=== PATIENT | female | born 1975 | race Asian ===

== ENCOUNTER 2016-07-04 11:42 | Emergency (ER) | payer OTHER ==
--- NOTE | ~2016-07-04 | EKG ---
PATIENT: KAIDEN SUGGS UNIT #: [id number] Ventricular Rate: 68 BPM Atrial Rate: 68 BPM P-R Interval: 140 ms QRS Duration: 96 ms Q-T Interval: 408 ms QTC Calculation(Bezet): 433 ms P Gepp: 61 degrees Calculated R Gepp: 72 degrees Calculated T Gepp: 74 degrees Diagnosis Line: Normal sinus rhythm Diagnosis Line: RSR' or QR pattern in V1 suggests right Diagnosis Line: ventricular conduction delay Diagnosis Line: Borderline ECG Diagnosis Line: No previous ECGs available Diagnosis Line: Confirmed by ANANT REEDER MD ([id number]) on Diagnosis Line: 07/05/2016 8:51:31 AM INTERPRETING MD: ASPEN
--- NOTE | ~2016-07-04 | CR72 ---
[facility] A Service of [facility] & [facility] RADIOLOGY TEXT RESULTS PATIENT: KAIDEN SUGGS LOCATION: [facility] : [birth year] UNIT #: [id number] AGE: [address]: Sharath Dos Santos MD SEX: F ORDER DR: [id number] [facility] [address] [place], [place] [address] [id number] E MR#: [id number] Acc #: [id number] NAME: KAIDEN SUGGS. : 1975 SEX: F STUDY DATE/TIME: 07/04/2016 10:49 UNIT: [facility] ROOM: STUDY DESCRIPTION: CR Chest Single View Portable Attending Physician: Sharath Dos Santos M.D. Ordering Physician: Sharath Dos Santos M.D. MEDICAL IMAGING REPORT This report is preliminary unless electronic signature is present EXAM Single view of the chest dated 07/04/2016 COMPARISON None HISTORY Dizziness and weakness for 2-3 days. FINDINGS Single view of the chest was obtained. A single AP portable view of the chest shows both lungs to be clear. The heart is normal in size. The mediastinal contour is normal. No significant bone abnormalities are seen. IMPRESSION Normal portable chest. Dictated by... Richard Hernandez M.D. THIS IS AN ELECTRONICALLY VERIFIED REPORT Richard Hernandez M.D. at 07/06/2016 2:59 PM CPR/lalo TD: 07/04/2016 12:59 JOB #: [id number] MEDICAL IMAGING REPORT Page 1 of 1 COPY
--- NOTE | ~2016-07-04 | CT71 ---
[facility] A Service of [facility] RADIOLOGY TEXT RESULTS PATIENT: KAIDEN SUGGS LOCATION: [facility] : [birth year] UNIT #: [id number] AGE: [address]: Sharath Dos Santos MD SEX: F ORDER DR: [id number] [facility] [address] [place], [place] [address] [id number] E MR#: [id number] Acc #: [id number] NAME: KAIDEN SGUGS : 1975 SEX: F STUDY DATE/TIME: 07/04/2016 12:11 UNIT: [facility] ROOM: STUDY DESCRIPTION: CT Head Wo Contrast Attending Physician: Sharath Dos Santos M.D. Ordering Physician: Sharath [id number] Garrett Dos Santos MEDICAL IMAGING REPORT This report is preliminary unless electronic signature is present EXAM CT head without contrast dated 07/04/2016 COMPARISON None HISTORY Dizziness, weakness and headaches for [address] exam was performed with one or more of the following radiation dose reduction techniques: automatic exposure control, adjustment of mA and/or kV according to patient size, and iterative reconstruction. FINDINGS CT of the head was obtained without contrast. No space-occupying intracranial mass, hydrocephalus or midline shift. Punctate hyperdensity is noted in the left lentiform nucleus, mainly in the region of the left globus pallidus. No surrounding edema or mass effect is seen. There are no old studies for comparison. Paranasal sinuses, mastoid air cells are well-aerated. 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 Imaged orbits with the ocular structures do not demonstrate any significant abnormality. IMPRESSION 1. No significant intracranial abnormality. 2. There is a punctate hyperdensity noted in the region of the left lentiform nucleus. It is probably focal calcification rather than hemorrhage given the lack of adjacent edema or significant mass effect. Dictated by... Richard Hernandez M.D. [facility] A Service of [facility] RADIOLOGY TEXT RESULTS PATIENT: KAIDEN SUGGS LOCATION: [facility] : 77 UNIT #: [id number] AGE: [address]: Sharath Dos Santos MD SEX: F ORDER DR: THIS IS AN ELECTRONICALLY VERIFIED REPORT Richard Hernandez M.D. at 07/06/2016 3:00 PM CPR/lalo TD: 07/04/2016 13:31 JOB #: [id number] MEDICAL IMAGING REPORT Page 1 of 1 COPY
[2016-07-04 11:14] LABS: BASOPHIL% 1.1 % (0-2.5); EOSINOPHIL% 1.4 % (0.0-7.0); HEMATOCRIT 33.9 % (35.0-45.0); HEMOGLOBIN 10.8 gm/dL (12.0-16.0); LYMPHOCYTE# 1.1 X10e3 (1.0-3.5); LYMPHOCYTE% 31.8 % (17.0-45.0); MEAN CELL VOLUME 82.6 FL (83-96); MEAN CORPUSCULAR HEMOGLOBIN 26.3 PG (28-34); MEAN CORPUSCULAR HGB CONC 31.8 g/dL (30-36); MEAN PLATELET VOLUME 8.5 FL (6.5-11.5); MONOCYTE# 0.4 X10e3 (0-1.0); MONOCYTE% 11.3 % (3.0-12.0); NEUTROPHIL# 1.9 X10e3 (1.5-7.1); NEUTROPHIL% 54.4 % (40-75); PLATELET COUNT 238 X10e3 (140-420); RED BLOOD COUNT 4.11 X10e (3.90-5.30); RED CELL DISTRIBUTION WIDTH 15.7 % (11.0-15.5); WHITE BLOOD COUNT 3.4 X10e3 (4.0-10.5)
[2016-07-04 11:22] LABS: DIFF IND NO
[2016-07-04 11:36] LABS: POC - CKMB <1.0 ng/mL (0.0-7.9); POC - TROPONIN <0.05 ng/mL (<=0.05)
[2016-07-04 11:54] LABS: URINE SOURCE CLEAN CATCH
[2016-07-04 11:57] LABS: ALBUMIN SERUM 4.7 g/dL (3.5-5.0); ALKALINE PHOSPHATASE 51 U/L (32-92); ALT (SGPT) 21 U/L (10-40); AST (SGOT) 31 U/L (10-42); BILIRUBIN, DIRECT 0.1 mg/dL (0.0-0.2); BILIRUBIN,INDIRECT 0.2 mg/dL (0.0-0.9); BILIRUBIN,TOTAL 0.3 mg/dL (0.2-2.0); BLOOD UREA NITROGEN <5 mg/dL (9-23); BUN/CREATININE RATIO 8.33; CALCIUM SERUM 8.9 mg/dL (8.4-10.2); CARBON DIOXIDE 23 mmol/L (22-31); CHLORIDE 99 mmol/L (100-111); CREATININE SERUM 0.6 mg/dL (0.6-1.4); GLUCOSE FASTING 137 mg/dL (70-110); POTASSIUM 3.6 mmol/L (3.5-5.1); PROTEIN TOTAL SERUM 7.9 g/dL (6.0-8.3); SODIUM 133 mmol/L (135-145)
[2016-07-04 12:05] LABS: URINE APPEARANCE CLEAR; URINE BILIRUBIN NEG (NEG); URINE BLOOD 3+ (NEG); URINE COLOR YELLOW; URINE GLUCOSE NEG (NEG); URINE KETONE NEG (NEG); URINE LEUKOCYTE ESTERASE NEG (NEG); URINE NITRATE NEG (NEG); URINE PROTEIN NEG (NEG); URINE SPECIFIC GRAVITY 1.005 (1.003-1.035); URINE UROBILINOGEN 0.2 MG/DL (NEG)
[2016-07-04 12:08] LABS: URBCS1 AUWI 100-200 /[HPF] (0-2); URINE BACTERIA AUWI NEG (NEGATIVE); URINE SQUAMOUS EPITHELIAL CELL NONE SEEN /[HPF]; UWBCS1 AUWI 0-2 (0-5)
[2016-07-04 12:13] LABS: CULTURE INDICATED? NO
== END 2016-07-04 16:25 | disposition hospice, home (50) ==
LOC: CED 11:42
PROVIDERS: Emergency Medicine
DX: R42 Dizziness and giddiness (principal)
CPT/HCPCS: 36415; 70450; 71010; 80048; 80076; 81003; 82553; 82947; 84484; 84703; 85025; 93005; 99285